=== PATIENT | male | born 1955 | race Hispanic/Latino ===

== ENCOUNTER 2018-04-27 09:06 | Outpatient (CLI) | payer OTHER ==
[2018-04-27 10:06] LABS: Blood Urea Nitrogen 21 mg/dL (9-20)
--- NOTE | 2018-04-27 13:35 | Cat Scan Report ---
CT CHEST, ABDOMEN AND PELVIS WITH CONTRAST: 04/27/18 09:06:00 CLINICAL: Malignant neoplasm upper lobe left lung. Left upper lung mass. History of large cell lymphoma. COMPARISON: 09/25/13 CT/PET. No recent comparison. TECHNIQUE: Volumetric acquisition and 1.25 millimeter scan reconstructions after the uneventful intravenous injection of 100 cc of Omnipaque 300. Consent was obtained prior to the administration of the contrast. Oral contrast was also given. FINDINGS: Chest: Bilateral apical and paramediastinal reticular opacities consistent with post radiation scarring. No lung mass or nodule. No pleural effusion. Normal aorta, heart and pulmonary arteries. Normal esophagus and trachea. No mediastinal or hilar lymphadenopathy.No axillary or supraclavicular lymphadenopathy. Right [id number] tip is in the distal SVC. Abdomen: Normal liver, bile ducts and gallbladder. The stomach is moderately distended by oral barium and secretions or food. Normal duodenum, pancreas and spleen. Normal adrenal glands. Small right renal cysts. The left kidney is normal. Normal renal collecting systems and ureters. No renal mass or calculus. Moderate calcification of the abdominal aorta and iliac arteries. High-grade stenosis or occlusion of the right common iliac artery. Blood flow in the right official femoral artery is reconstituted by collaterals at the groin. There is also stenosis of the left common iliac artery at its bifurcation. No lymphadenopathy.No ascites.Normal small bowel. Normal ascending, transverse and descending colon. Normal appendix. Pelvis: Normal urinary bladder and rectum.Sigmoid diverticulosis but no diverticulitis. Normal prostate and seminal vesicles. Bilateral fat containing inguinal hernias. Bone windows too numerous to count sclerotic bone lesions involving the thoracic and lumbar spine, sacrum, bony pelvis and proximal left femur. Pathologic anterior wedge compression fractures of L4 and L1. IMPRESSION:1. Skeletal metastases involving the spine, pelvis and proximal left femur. 2. Pathologic anterior wedge compression fractures of L1 and L4. 3. No mass or lymphadenopathy. 4. No lung mass or nodules. 5. No evidence of hepatic or adrenal metastasis. 6. High-grade stenosis versus occlusion of the proximal right common femoral artery with reconstitution of blood flow by collaterals at the right groin. A less severe stenosis of the distal left common femoral artery.
== END 2018-04-27 09:07 | disposition home or self-care (01) ==
LOC: CT 09:06
PROVIDERS: ATTEND Internal Medicine Hematology & Oncology
DX: C34.12 Malignant neoplasm of upper lobe, left bronchus or lung (principal); C79.49 Secondary malignant neoplasm of other parts of nervous system; M48.56XA Collapsed vertebra, not elsewhere classified, lumbar region, initial encounter for fracture; K21.9 Gastro-esophageal reflux disease without esophagitis; Z87.891 Personal history of nicotine dependence
CPT/HCPCS: 36415; 71260; 74177; 82565; 84520; Q9967